=== PATIENT | female | born 1970 | race African-American/Black ===

== ENCOUNTER → 2016-07-26 | Outpatient (CLI) | payer BC | LOC: COL.CARD 13:00 | DX: R40.0 Somnolence (principal); R55 Syncope and collapse ==

== ENCOUNTER 2018-11-09 13:22 | Emergency (ER) | payer BC ==
[~2018-11-09] VITALS: Ht 160 cm; Wt 121.4 kg
[2018-11-09 13:27] VITALS: TEMP 98.2
[2018-11-09 13:46] LABS: COLLECTION METHOD CLEAN CATCH
[2018-11-09 13:53] LABS: PH 6 (5-8); SQUAMOUS EPITHELIAL 0-2 /hpf; URINE APPEARANCE Clear; URINE BACTERIA None Seen /hpf; URINE BILIRUBIN Negative (NEGATIVE); URINE BLOOD Negative (NEGATIVE); URINE COLOR Straw; URINE GLUCOSE Negative (NEGATIVE); URINE KETONE Negative (NEGATIVE); URINE LEUKOCYTE ESTERASE Negative (NEGATIVE); URINE NITRATE Negative (NEGATIVE); URINE PROTEIN(semi-quant) Negative (NEGATIVE); URINE RBC 0-2 /hpf; URINE UROBILINOGEN Negative (NEGATIVE)
[2018-11-09 14:00] LABS: TRICYCLIC ANTIDEPRESS URINE NEGATIVE
[2018-11-09 14:09] LABS: BASO # 0.1 (0.0-0.2); EOS # 0.2 (0.0-0.7); EOS % 2.6 % (0-4.0); GRAN # 3.4 (1.4-6.5); GRAN % 55.4 % (42.2-75.2); HEMATOCRIT 42.3 % (37.0-47.0); LYMPH # 2.1 (1.2-3.4); LYMPH % 34.2 % (20.0-51.0); MEAN CELL VOLUME 98 fl (80.0-100.0); MEAN CORPUSCULAR HEMOGLOBIN 32 pg (27.0-31.0); MEAN CORPUSCULAR HGB CONC 33 g/dl (33.0-37.0); MEAN PLATELET VOLUME 8.5 fl (7.4-10.4); MONO # 0.4 (0.1-0.6); MONO % 6.6 % (1.7-9.3); PLATELET COUNT 285 K/mm3 (130-400); RED BLOOD COUNT 4.34 M/mm3 (4.10-5.30); REDCELL DISTRIBUTION WIDTH-CV 13.2 % (11.5-14.5)
[2018-11-09] MEDS ORDERED: BUSPAR10 MG PO (14:10)
[2018-11-09] MEDS ORDERED: XANAX 1MG1 MG PO (14:10)
[2018-11-09] MEDS ORDERED: FLEXERIL 1010 MG/TAB PO (14:11)
[2018-11-09] MEDS ORDERED: MOBIC15 MG PO (14:11)
[2018-11-09] MEDS ORDERED: GLUCOPHAGE XR500 M1 PO (14:12)
[2018-11-09] MEDS ORDERED: EFFEXOR XR75 MG/CAP PO (14:13)
[2018-11-09] MEDS ORDERED: NEURONTIN300 MG/CAP PO (14:14)
[2018-11-09] MEDS ORDERED: TOPAMAX50 MG PO (14:15)
[2018-11-09] MEDS ORDERED: LASIX 40MG TABL40 MG PO (14:15)
[2018-11-09 14:23] LABS: ALANINE AMINOTRANSFERASE 13 U/L (9-52); ALBUMIN 4.2 gm/dL (3.5-5.0); ALCOHOL(ethanol),MEDICAL 54 mg/dL; ALKALINE PHOSPHATASE 88 U/L (50-136); ANION GAP 10 mmol/L (7-16); AST,SGOT 32 U/L (15-37); BILIRUBIN,TOTAL 0.2 mg/dL (0.0-1.0); BLOOD UREA NITROGEN 7 mg/dL (7-17); CALCIUM 8.7 mg/dL (8.4-10.2); CARBON DIOXIDE 24 mmol/L (22-30); CHLORIDE 108 mmol/L (98-107); CREATININE, serum 0.65 (0.52-1.25); GLUCOSE 75 mg/dL (74-106); POTASSIUM 3.7 mmol/L (3.4-5.0); SODIUM 143 mmol/L (137-145); TOTAL PROTEIN 7.5 gm/dL (6.4-8.2)
[2018-11-09 14:26] LABS: ACETAMINOPHEN < 10 ug/mL (10-30); SALICYLATE < 1.0 mg/dL
[2018-11-09 17:49] VITALS: BP 140/88; PULSE 74
== END 2018-11-09 17:46 | disposition home or self-care (01) ==
LOC: COL.ER 13:22
PROVIDERS: Emergency Medicine
DX: F32.9 Major depressive disorder, single episode, unspecified (principal); R45.851 Suicidal ideations; Z98.51 Tubal ligation status

== ENCOUNTER 2019-02-15 06:30 | Emergency (ER) | payer BC ==
[~2019-02-15] VITALS: Ht 162.6 cm; Wt 120.9 kg
[~2019-02-15 06:30] MED LIST: BUSPAR10 MG PO; EFFEXOR XR75 MG/CAP PO; FLEXERIL 1010 MG/TAB PO; GLUCOPHAGE XR500 M1 PO; LASIX 40MG TABL40 MG PO; MOBIC15 MG PO; NEURONTIN300 MG/CAP PO; TOPAMAX50 MG PO; XANAX 1MG1 MG PO
[2019-02-15 06:35] VITALS: TEMP 98.4
[2019-02-15] MEDS ORDERED: PREDNISONE10 MG PO (09:03)
[2019-02-15] MEDS ORDERED: PROAIR HFA0.09 MG/AC IH (09:21)
[2019-02-15 09:33] VITALS: BP 156/95; PULSE 101
== END 2019-02-15 09:33 | disposition home or self-care (01) ==
LOC: COL.ER 06:30
DX: J44.1 Chronic obstructive pulmonary disease with (acute) exacerbation (principal); I10 Essential (primary) hypertension; Z79.84 Long term (current) use of oral hypoglycemic drugs
CPT/HCPCS: J7512

== ENCOUNTER → 2021-04-24 | Outpatient (CLI) | payer BC ==
[~2021-04-24] MED LIST changes: +PREDNISONE10 MG PO; +PROAIR HFA0.09 MG/AC IH
== END ==
LOC: COL.RAD 07:18
DX: K44.9 Diaphragmatic hernia without obstruction or gangrene (principal); E66.01 Morbid (severe) obesity due to excess calories; Z98.0 Intestinal bypass and anastomosis status

== ENCOUNTER → 2021-08-19 | Outpatient (CLI) | payer BC | LOC: COL.RAD 15:59 | DX: M54.50 Low back pain, unspecified (principal); M25.561 Pain in right knee; M25.562 Pain in left knee ==

== ENCOUNTER → 2021-08-28 | Outpatient (CLI) | payer BC | LOC: MHCPAIN 13:00 | DX: M70.62 Trochanteric bursitis, left hip (principal); M70.61 Trochanteric bursitis, right hip; M25.551 Pain in right hip; M25.552 Pain in left hip | CPT/HCPCS: J1040 ==

== ENCOUNTER → 2021-09-14 | Outpatient (CLI) | payer BC | LOC: MHCPAIN 10:40 | DX: M54.50 Low back pain, unspecified (principal); M43.16 Spondylolisthesis, lumbar region; M79.661 Pain in right lower leg; M79.662 Pain in left lower leg; Z96.653 Presence of artificial knee joint, bilateral | CPT/HCPCS: G0463 ==

== ENCOUNTER → 2022-03-24 | Outpatient (CLI) | payer BC | LOC: MHCPAIN 15:08 | DX: M48.062 Spinal stenosis, lumbar region with neurogenic claudication (principal); M43.16 Spondylolisthesis, lumbar region | CPT/HCPCS: G0463 ==